=== PATIENT | female | born 1995 | race Hispanic/Latino ===

== ENCOUNTER 2019-02-17 12:57 | Emergency (ER) | payer SELFPAY ==
[2019-02-17] MEDS ORDERED: DIPHENHYDRAMINE 50 MG/ML VIAL ONE (14:31)
[2019-02-17] MEDS ORDERED: METOCLOPRAMIDE 10 MG/2mL INJ ONE (14:31)
[2019-02-17] MEDS ORDERED: NA CHLORIDE 0.9% 250 ML ONE (14:31)
--- NOTE | 2019-02-17 15:08 | RAD REPORT ---
EXAM DESCRIPTION: CT - Head Brain Wo Cont - 02/17/2019 2:46 pm CLINICAL HISTORY: Persistent occipital headache COMPARISON: None. TECHNIQUE: Axial 5 mm thick images of the head were obtained without IV contrast. All CT scans are performed using dose optimization technique as appropriate and may include automated exposure control or mA/KV adjustment according to patient size. FINDINGS: No intracranial hemorrhage, mass, edema or shift of mid-line structures. No acute infarcti on changes seen. No abnormal extra-axial fluid collections. Ventricles are normal. Mastoid air cells and visualized portions of the paranasal sinuses are clear. No acute bony findings. IMPRESSION: Negative non-contrast CT head examination.
--- NOTE | 2019-02-17 15:13 | ER ---
Nurse's Notes [facility] Name: Tylor Meadows Age: 24 yrs Sex: Female : 1995 Arrival Date: 02/17/2019 Time: 13:01 Bed 27 Private MD: Diagnosis: Migraine Presentation: 02/17 13:24 Presenting complaint: Patient states: occipital headache x 2 weeks, denies n/v. sv Transition of care: patient was not received from another setting of care. Onset of symptoms was January 2019. Risk Assessment: Do you want to hurt yourself or someone else? Patient reports no desire to harm self or others. Initial Sepsis Screen: Does the patient meet any 2 criteria? No. Patient's initial sepsis screen is negative. Does the patient have a suspected source of infection? No. Patient's initial sepsis screen is negative. Care prior to arrival: None. 13:24 Method Of Arrival: Ambulatory sv 13:24 Acuity: [place] 3 sv Triage Assessment: 13:26 Headache History: The patient has had previous headaches and this one is similar to previous episodes. General: Appears in no apparent distress. uncomfortable, Behavior is calm, cooperative, appropriate for age. Pain: Complains of pain in base of the skull Pain currently is 10 out of 10 on a pain scale. Neuro: Level of Consciousness is awake, alert, obeys commands, Gait is steady. Respiratory: Respiratory effort is even, unlabored. 14:45 Pain: Pain began suddenly, Also complains of no other associated symptoms. 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 - Social history:: Smoking status: unknown. - Ebola Screening: : No symptoms or risks identified at this time. Screenin:44 Abuse screen: Denies threats or abuse. Denies injuries from another. Nutritional rv screening: No deficits noted. Tuberculosis screening: No symptoms or risk factors identified. Fall Risk None identified. Assessment: 14:43 General: Appears in no apparent distress. comfortable, Behavior is calm, cooperative. rv Pain: Complains of pain in head. Neuro: Level of Consciousness is awake, alert, obeys commands, Oriented to person, place, time, situation, Reports headache. Cardiovascular: Patient's skin is warm and dry. Respiratory: Airway is patent. GI: No signs and/or symptoms were reported involving the gastrointestinal system. : No signs and/or symptoms were reported regarding the genitourinary system. EENT: No signs and/or symptoms were reported regarding the EENT system. Derm: Skin is intact. Musculoskeletal: No signs and/or symptoms reported regarding the musculoskeletal system. Vital Signs: 13:25 BP 98 / 47; Pulse 84; Resp 18; Temp 98.8; Pulse Ox 100% ; Weight 113.4 kg; Height 5 ft. sv 9 in. (175.26 cm); Pain 10/10; 15:42 BP 106 / 65; Pulse 87; Resp 15; Pulse Ox 100% on R/A; rv 13:25 Body Mass Index 36.92 (113.40 kg, 175.26 cm) sv ED Course: 13:01 Patient arrived in ED. mr 13:24 Arm band placed on. sv 13:25 Triage completed. sv 14:13 Chandra Contreras PA is PHCP. jr8 14:13 Diego Mcdaniels MD is Attending Physician. jr8 14:16 Júnior Singletary RN is Primary Nurse. rv 14:43 CT Head Brain wo Cont Sent. rv 14:44 Patient has correct armband on for positive identification. Bed in low position. Call rv light in reach. Side rails up X 1. Pulse ox on. NIBP on. 14:45 Inserted saline lock: 20 gauge in right antecubital area, using aseptic technique. rv 14:47 CT Head Brain wo Cont In Process Unspecified. EDMS 15:42 No provider procedures requiring assistance completed. IV discontinued, intact, rv bleeding controlled, No redness/swelling at site. Administered Medications: 14:43 Drug: Reglan 10 mg Route: IVP; Site: right antecubital; rv 14:43 Drug: Benadryl 25 mg Route: IVP; Site: right antecubital; rv Outcome: 15:12 Discharge ordered by . jr8 15:42 Patient left the ED. iw 15:42 Discharged to home ambulatory, with friend. rv 15:42 Condition: improved 15:42 Discharge instructions given to patient, Instructed on discharge instructions, follow up and referral plans. Demonstrated understanding of instructions, follow-up care. Signatures: Dispatcher [employer] EDMS Sudhakar, Yana, RN RN sv Lynsey Johnson mr Evi Yan RN RN iw Chandra Contreras PA PA jr8 Júnior Singletary RN RN rv Corrections: (The following items were deleted from the chart) 13:27 13:25 Pulse 84bpm; Resp 18bpm; Pulse Ox 100%; Temp 98.8F; 113.4 kg; Height 5 ft. 9 in.; sv BMI: 36.9; Pain 10; sv
--- NOTE | 2019-02-17 15:14 | EDPHYS ---
Physician Documentation [facility] Name: Tylor Meadows Age: 24 yrs Sex: Female : 1995 Arrival Date: 02/17/2019 Time: 13:01 Bed 27 Private MD: ED Physician Diego Mcdaniels HPI: 02/17 14:27 This 24 yrs old Female presents to ER via Ambulatory with complaints of jr8 Headache. 14:27 The patient complains of pain to the scalp and base of the skull. Onset: The jr8 symptoms/episode began/occurred 1 week(s) ago. Severity of symptoms: At its worst the pain was moderate, in the emergency department the pain is unchanged. Pt states pain in the occipital region for the past one week. Denies N/V, reports sensitivity to light.. 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 - Social history:: Smoking status: unknown. - Ebola Screening: : No symptoms or risks identified at this time. ROS: 14:27 Constitutional: Negative for fever, chills, and weight loss, Eyes: Negative for injury, jr8 pain, redness, and discharge, ENT: Negative for injury, pain, and discharge, Neck: Negative for injury, pain, and swelling, Cardiovascular: Negative for chest pain, palpitations, and edema, Respiratory: Negative for shortness of breath, cough, wheezing, and pleuritic chest pain, Abdomen/GI: Negative for abdominal pain, nausea, vomiting, diarrhea, and constipation, Back: Negative for injury and pain, : Negative for injury, bleeding, discharge, and swelling, MS/Extremity: Negative for injury and deformity. 14:27 Neuro: Positive for headache. Exam: 14:27 Constitutional: This is a well developed, well nourished patient who is awake, alert, jr8 and in no acute distress. Head/Face: Normocephalic, atraumatic. Eyes: Pupils equal round and reactive to light, extra-ocular motions intact. Lids and lashes normal. Conjunctiva and sclera are non-icteric and not injected. Cornea within normal limits. Periorbital areas with no swelling, redness, or edema. ENT: Nares patent. No nasal discharge, no septal abnormalities noted. Tympanic membranes are normal and external auditory canals are clear. Oropharynx with no redness, swelling, or masses, exudates, or evidence of obstruction, uvula midline. Mucous membranes moist. Neck: Trachea midline, no thyromegaly or masses palpated, and no cervical lymphadenopathy. Supple, full range of motion without nuchal rigidity, or vertebral point tenderness. No Meningismus. Chest/axilla: Normal chest wall appearance and motion. Nontender with no deformity. No lesions are appreciated. Cardiovascular: Regular rate and rhythm with a normal S1 and S2. No gallops, murmurs, or rubs. Normal PMI, no JVD. No pulse deficits. Respiratory: Lungs have equal breath sounds bilaterally, clear to auscultation and percussion. No rales, rhonchi or wheezes noted. No increased work of breathing, no retractions or nasal flaring. Abdomen/GI: Soft, non-tender, with normal bowel sounds. No distension or tympany. No guarding or rebound. No evidence of tenderness throughout. 14:27 Neuro: Orientation: is normal, Mentation: is normal, Cranial nerves: CN II- XII are normal as tested, Cerebellar function: is grossly normal, Motor: is normal, Sensation: is normal, Gait: is steady. Vital Signs: 13:25 BP 98 / 47; Pulse 84; Resp 18; Temp 98.8; Pulse Ox 100% ; Weight 113.4 kg; Height 5 ft. sv 9 in. (175.26 cm); Pain 10/10; 15:42 BP 106 / 65; Pulse 87; Resp 15; Pulse Ox 100% on R/A; rv 13:25 Body Mass Index 36.92 (113.40 kg, 175.26 cm) sv MDM: 14:21 Patient medically screened. jr8 15:12 Data reviewed: vital signs, nurses notes, radiologic studies, CT scan. Data jr8 interpreted: Pulse oximetry: on room air is 100 %. Interpretation: normal. Counseling: I had a detailed discussion with the patient and/or guardian regarding: the historical points, exam findings, and any diagnostic results supporting the discharge/admit diagnosis, radiology results, the need for outpatient follow up, a family practitioner, to return to the emergency department if symptoms worsen or persist or if there are any questions or concerns that arise at home. Response to treatment: the patient's symptoms have markedly improved after treatment. 02/17 14:33 Order name: CT Head Brain wo Cont; Complete Time: 15:12 jr8 02/17 14:27 Order name: SL; Complete Time: 14:43 jr8 Administered Medications: 14:43 Drug: Reglan 10 mg Route: IVP; Site: right antecubital; rv 14:43 Drug: Benadryl 25 mg Route: IVP; Site: right antecubital; rv Disposition: 16:23 Co-signature as Attending Physician, Diego Mcdaniels MD I agree with the assessment and kdr plan of care. 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 Disposition: 02/17/19 15:12 Discharged to Home. Impression: Migraine. - Condition is Stable. - Discharge Instructions: Migraine Headache. - Work release form, Medication Reconciliation Form, Thank You Letter, Antibiotic Education, Prescription Opioid Use form. - Follow up: Private Physician; When: As needed; Reason: Recheck today's complaints, Continuance of care, Re-evaluation by your physician. - Problem is new. - Symptoms have improved. Signatures: Dispatcher [employer] Yana Dykes RN RN Diego Mcdaniels MD MD [facility] Evi Yan RN RN Chandra Schneider PA PA jr8 Júnior Singletary RN RN rv Corrections: (The following items were deleted from the chart) 15:42 15:12 02/17/2019 15:12 Discharged to Home. Impression: Migraine. Condition is Stable. iw Forms are Medication Reconciliation Form, Thank You Letter, Antibiotic Education, Prescription Opioid Use. Follow up: Private Physician; When: As needed; Reason: Recheck today's complaints, Continuance of care, Re-evaluation by your physician. Problem is new. Symptoms have improved. jr8
[2019-02-17 16:13] VITALS: TEMP 98.8; O2SAT 100
[2019-02-17 16:15] VITALS: BP 106/65
== END 2019-02-17 15:42 | disposition home or self-care (01) ==
LOC: ER 12:57
DX: G43.909 Migraine, unspecified, not intractable, without status migrainosus (principal)
CPT/HCPCS: 70450; 96374; 96375; 99284; J1200; J2765; J7030